=== PATIENT | female | born 1940 | race Caucasian/White ===

== ENCOUNTER → 2019-11-24 | Outpatient (CLI) | payer OTHER | END | disposition home or self-care (01) | LOC: OIH 13:37 | PROVIDERS: ATTEND Internal Medicine Cardiovascular Disease | DX: Z13.6 Encounter for screening for cardiovascular disorders (principal) | CPT/HCPCS: 75571 ==

== ENCOUNTER → 2019-11-30 | Outpatient (CLI) | payer MEDICARE ==
[~2019-11-30] VITALS: Ht 160 cm; Wt 75.7 kg
[~2019-11-30] MED LIST: REGADENOSON 0.4 MG/5 ML PF SYG IVP SCH
== END | disposition home or self-care (01) ==
LOC: SHCH 08:02 → EDUNIT# 08:20
PROVIDERS: ATTEND Internal Medicine Cardiovascular Disease
DX: I51.7 Cardiomegaly (principal); I10 Essential (primary) hypertension
CPT/HCPCS: 78452; 93017; 96374; A9500 ×2; J2785

== ENCOUNTER → 2019-12-14 | Outpatient (CLI) | payer MEDICARE | END | disposition home or self-care (01) | LOC: SHCH 09:45 → EDUNIT# 10:00 | PROVIDERS: ATTEND Internal Medicine Cardiovascular Disease | DX: I08.3 Combined rheumatic disorders of mitral, aortic and tricuspid valves (principal); R00.2 Palpitations; I10 Essential (primary) hypertension; R94.31 Abnormal electrocardiogram [ECG] [EKG] | CPT/HCPCS: 93306 ==

== ENCOUNTER 2020-04-01 06:20 | Observation (INO) | payer MEDICARE ==
[2020-04-01] VITALS (13 sets, daily range): BP systolic 105–187; BP diastolic 52–74
[~2020-04-01] VITALS: Ht 153.7 cm; Wt 78.0 kg
[~2020-04-01 06:20] MED LIST changes: +ATOR20TA65 PO; +CHOL20004 PO; +DULO60CA64 PO; +METO100T14 PO; +OLME5TAB6 PO; -REGADENOSON 0.4 MG/5 ML PF SYG IVP SCH
[2020-04-01] MEDS ORDERED: SODIUM CHLORIDE 0.9% 1000ML 1,000 ML IV ONE (06:57)
--- NOTE | 2020-04-01 07:00 | NUR ---
PRE OP PT ARRIVED AMBULATORY IN NO DISTRESS. PT ORIENTED TO CALL LIGHT, ROOM AND BED IN LOWEST POSITION. PT CONNECTED TO TIGHT ROPE WALKER.
[2020-04-01 07:05] LABS: BASOPHILS % (AUTO) 0.8 % (0.0-5.0); EOSINOPHILS % (AUTO) 4.3 % (0.0-8.0); HEMATOCRIT 41.7 % (36-48); LYMPHOCYTES % (AUTO) 23.6 % (21.0-51.0); MEAN CORPUSCULAR HEMOGLOBIN 31.4 pg (27.0-33.0); MEAN CORPUSCULAR HGB CONC 31.9 g/dL (32.0-36.0); MEAN CORPUSCULAR VOLUME 98.3 fL (79-99); PLATELET COUNT (AUTO) 177 K/uL (130-400); RED BLOOD CELL COUNT(AUTO) 4.24 MIL/uL (4.00-5.50)
[2020-04-01 07:27] LABS: INR 0.94 (0.85-1.15); PROTHROMBIN TIME 10.2 SEC (9.6-11.6)
[2020-04-01 07:38] LABS: CREATININE 0.9 mg/dL (0.5-1.5); POTASSIUM 3.9 mmol/L (3.5-5.1)
[2020-04-01 08:13] LABS: APPEARANCE,URINE CLEAR (CLEAR); BILIRUBIN,URINE NEGATIVE (NEGATIVE); COLOR,URINE YELLOW (YELLOW); GLUCOSE, URINE (UA) NEGATIVE (NEGATIVE); KETONES,URINE NEGATIVE (NEGATIVE); LEUKOCYTE ESTERASE ,URINE SMALL (NEGATIVE); NITRATE,URINE NEGATIVE (NEGATIVE); OCCULT BLOOD,URINE TRACE-INTACT (NEGATIVE); PROTEIN,URINE NEGATIVE (NEGATIVE); UROBILINOGEN,URINE 0.2 mg/dL (0.2-1.0)
[2020-04-01] MEDS ORDERED: IOHEXOL 350 MG/ML 100ML INFUS..BTL IV ONE (08:13)
[2020-04-01] MEDS ORDERED: IOHEXOL-350 50ML VIAL IV ONE ×2 (08:13→09:43)
[2020-04-01] MEDS ORDERED: SODIUM BICARB 50MEQ 50ML VIAL ONE (08:13)
[2020-04-01] MEDS ORDERED: HEPARIN SODIUM 1000UNIT/ML 10ML VIAL ONE (08:13)
[2020-04-01] MEDS ORDERED: MEPERIDINE-PF 25 MG/ML SYG ONE (08:14)
[2020-04-01] MEDS ORDERED: LIDOCAINE HCL 2% 20ML ONE (08:14)
[2020-04-01] MEDS ORDERED: MIDAZOLAM HCL 1 MG/ML 2ML VIAL ONE (08:14)
[2020-04-01] MEDS ORDERED: AMIL1TAB2 PO (08:19)
[2020-04-01] MEDS ORDERED: FOLIC ACID PO (08:19)
[2020-04-01] MEDS ORDERED: ZINC PO (08:19)
[2020-04-01] MEDS ORDERED: [UNRECOGNIZED DRUG - OTHER] PO (08:19)
[2020-04-01] MEDS ORDERED: GINKGO BILOBA PO (08:19)
--- NOTE | 2020-04-01 08:35 | NUR ---
TRANSFER PT TAKEN TO [facility] VIA BED IN NO DISTRESS.
[2020-04-01 08:37] LABS: BACTERIA,URINE Few /HPF (None Seen); RBC,URINE 0-1 /HPF (0-1); SQUAMOUS EPITHELIAL CELL,UR Rare /HPF (0-2)
[2020-04-01] MEDS ORDERED: NITROGLYCERIN 2 MG/VIAL VIAL IV ONE (08:47)
[2020-04-01] MEDS ORDERED: HYDRALAZINE HCL 20 MG/ML VIAL ONE (09:45)
[2020-04-01] MEDS ORDERED: ASPI-1032 PO (09:54)
[2020-04-01] MEDS ORDERED: ASPIRIN 325MG EC TAB 325 MG TABLET.DR PO ONE (10:34)
[2020-04-01] MEDS ORDERED: CLOPIDOGREL BISULFATE 300 MG TAB ONE (10:34)
[2020-04-01] MEDS ORDERED: ONDANSETRON HCL 4 MG/2 ML VIAL IVP PRN (11:00)
[2020-04-01] MEDS ORDERED: CLOPIDOGREL BISULFATE 300 MG TAB PO SCH (11:00)
--- NOTE | 2020-04-01 11:15 | NUR ---
RECEIVED FROM LICENSED CLINICIAN VIA BED ACCOMPANIED BY Vonnie GUTIERREZ RN. DROWSY BUT AROUSABLE. DENIES ANY C/O SOB, DENIES ANY CURRENT PAIN. INSTRUCTED ON STRICT BR PER MD ORDERS, VERBALIZED UNDERSTANDING. RIGHT GROIN, SOFT, NO ECCHYMOSIS OR HEMATOMA NOTED. FEET WARM, PP'S WEAK BILATERALLY. COMPLETE ASSESSMENT DONE. CALL LIGHT WITHIN REACH, VERBALIZED ABILITY TO USE. BED PLACED IN REVERSE [place] POSITION FOR COMFORT. ROOM DOOR OPEN, VISIBLE FROM NURSE'S STATION.
[2020-04-01] MEDS ORDERED: HYDROCODONE/ACETAMINOPHEN 5/325 MG TAB PO PRN (12:00)
[2020-04-01] MEDS ORDERED: MORPHINE SULFATE 2 MG/ML 1ML SYG IVP PRN (12:00)
[2020-04-01] MEDS: HOME MEDICATION 1 EACH PO SCH (12:01)
[2020-04-01] MEDS ORDERED: MORPHINE SULFATE 2 MG/ML 1ML SYG ONE (12:18)
[2020-04-01] MEDS: SODIUM CHLORIDE 0.9% 1000ML 1,000 ML IV SCH ×2 (12:20→21:34)
[2020-04-01] MEDS ORDERED: TRAM100T40 PO (16:44)
--- NOTE | 2020-04-01 16:46 | NUR ---
CM NOTE PATIENT HERE FOR SCHEDULED PROCEDURE-- NO TRIGGERS TO CASE MANAGEMENT-- NO CONCERNS VOICED TO [facility]PA EYES CLOSED, RESP REGULAR- WILL DEFER DETAILED CM ASSESSMENT AT THIS TIME Addendum: 04/01/20 at 1648 by VAISHALI MICHAELS RN CM Amended: Links added.
[2020-04-01] MEDS ORDERED: TRAMADOL HCL 50 MG TABLET PO PRN (17:00)
--- NOTE | 2020-04-01 17:20 | NUR ---
BR COMPLETED. RIGHT GROIN SOFT, NO HEMATOMA. ALLOWED UP IN BED FOR DINNER. CALL LIGHT WITHIN REACH. ROOM DOOR OPEN, VISIBLE FROM NURSE'S STATION.
[2020-04-01] MEDS: PHARMACY COMMUNICATION MISC SCH (20:45)
[2020-04-01] MEDS ORDERED: [UNRECOGNIZED DRUG - OTHER] PO SCH (21:00)
[2020-04-01] MEDS ORDERED: DULOXETINE HCL 30 MG CAP PO SCH (21:00)
[2020-04-01] MEDS ORDERED: ATORVASTATIN CALCIUM 20 MG TABLET PO SCH (21:00)
[2020-04-01] MEDS ORDERED: LOSARTAN 50 MG TABLET PO SCH (21:00)
[2020-04-01] MEDS: METOPROLOL TARTRATE 50 MG TAB PO SCH (21:00)
[2020-04-02] MEDS: ACETAMINOPHEN 325 MG TAB PO PRN ×2 (03:21→11:00)
[2020-04-02 03:29] VITALS: BP 126/63
[2020-04-02 04:09] LABS: HEMATOCRIT 36.5 % (36-48); MEAN CORPUSCULAR HEMOGLOBIN 31.8 pg (27.0-33.0); MEAN CORPUSCULAR HGB CONC 33.2 g/dL (32.0-36.0); MEAN CORPUSCULAR VOLUME 96.1 fL (79-99); RED BLOOD CELL COUNT(AUTO) 3.8 MIL/uL (4.00-5.50); RED CELL DISTRIBUTION WIDTH 14.2 % (11.0-15.5); WHITE BLOOD COUNT (AUTO) 5.9 K/uL (4.8-10.8)
[2020-04-02] MEDS: PHARMACY COMMUNICATION MISC SCH ×2 (04:32→12:45)
[2020-04-02 04:38] LABS: CREATININE 0.8 mg/dL (0.5-1.5); POTASSIUM 3.1 mmol/L (3.5-5.1)
[2020-04-02] MEDS: SODIUM CHLORIDE 0.9% 1000ML 1,000 ML IV SCH (07:00)
[2020-04-02] MEDS: HOME MEDICATION 1 EACH PO SCH (07:24)
[2020-04-02] MEDS ORDERED: POTASSIUM CHLORIDE 20MEQ/100ML 100 ML IV PRN (07:30)
[2020-04-02] MEDS ORDERED: LIDOCAINE HCL-MPF 1% 2ML VIAL IV PRN (07:30)
[2020-04-02] MEDS ORDERED: POTASSIUM CHLORIDE 20 MEQ ERTAB PO PRN (07:30)
[2020-04-02 08:40] VITALS: BP 139/82
[2020-04-02] MEDS: METOPROLOL TARTRATE 50 MG TAB PO SCH (08:40)
[2020-04-02] MEDS ORDERED: ASPIRIN PO PRN (09:00)
[2020-04-02] MEDS ORDERED: CAFFEINE PO PRN (09:00)
[2020-04-02] MEDS ORDERED: ASPIRIN 81MG TAB.CHEW PO SCH (09:00)
[2020-04-02] MEDS ORDERED: FOLIC ACID 1 MG TABLET PO SCH (09:00)
[2020-04-02] MEDS ORDERED: GINKGO BILOBA PO SCH (09:00)
[2020-04-02] MEDS ORDERED: ***HM*** (Cholecalciferol (Vitamin D3) (Vitamin D3) 50 MCG) PO SCH (09:00)
[2020-04-02] MEDS ORDERED: ZINC SULFATE 220 CAPSULE PO SCH (09:00)
[2020-04-02] MEDS ORDERED: CLOPIDOGREL BISULFATE 75 MG TAB PO SCH (09:00)
[2020-04-02] MEDS: POTASSIUM CHLORIDE 10% ELIXIR 20 MEQ/15 ML UDCUP PO PRN ×3 (11:02→17:29)
[2020-04-02 11:48] VITALS: BP 145/72
--- NOTE | 2020-04-02 12:30 | NUR ---
DR. Nnamdi MCRAE IN ROOM ASSESSING RIGHT GROIN AND SPEAKING WITH PT. DR. MCRAE EXPLAINED TO PT. IMPORTANCE OF DAILY ASPIRIN AND PLAVIX THERAPY. QUESTIONS ANSWERED, PT. VERBALIZED UNDERSTANDING.
--- NOTE | 2020-04-02 15:26 | NUR ---
[id number] patient signed HERNANDEZ Letter, I faxed HERNANDEZ Letter to [phone] and placed in chart under consent tab.
[2020-04-02 16:10] VITALS: BP 138/77
--- NOTE | 2020-04-02 16:11 | NUR ---
INITIAL CM NOTE Met w patient at bedside- states active, independent, drives, no dme, home safe and accessible lives with spouse angeline who will provide transport . dcp home today when cleared by pmd, s/p dawson, little Addendum: 04/02/20 at 1613 by VAISHALI MICHAELS RN CM Amended: Links added.
--- NOTE | 2020-04-02 18:10 | NUR ---
HL REMOVED, CATHETER INTACT. EXTENSIVE DISCHARGE INSTRUCTIONS GIVEN, VERBALIZED UNDERSTANDING.
--- NOTE | 2020-04-02 18:25 | NUR ---
DISCHARGED HOME VIA W/C WITH BELONGINGS ACCOMPANIED BY BIJAN RODRIGUEZ.
== END 2020-04-02 18:32 | disposition home or self-care (01) ==
LOC: DAH 06:20 → 4CH 06:21
PROVIDERS: ADMIT Internal Medicine Critical Care Medicine; ATTEND Internal Medicine Critical Care Medicine
DX: I25.119 Atherosclerotic heart disease of native coronary artery with unspecified angina pectoris (principal); I10 Essential (primary) hypertension; E78.5 Hyperlipidemia, unspecified; M19.90 Unspecified osteoarthritis, unspecified site; M54.12 Radiculopathy, cervical region; G89.29 Other chronic pain; R51 Headache; R79.89 Other specified abnormal findings of blood chemistry; R94.39 Abnormal result of other cardiovascular function study; Z98.1 Arthrodesis status; Z79.82 Long term (current) use of aspirin; Z79.899 Other long term (current) drug therapy
CPT/HCPCS: 36415 ×2; 71045; 80048 ×2; 80061; 81001; 85025; 85027; 85610; 85730; 93005; 93458; A4215; A4216; A4221; A4222; A4223 ×3; A4606; A4663; C1725; C1760; C1769; C1874 ×4; C1887 ×2; C1894 ×2; C9600 ×2; G0378 ×32; J0360; J1644 ×2; J2175; J2250; J3490 ×3; J7030 ×3; Q9965 ×2; Q9967 ×2; 99156; 99157